=== PATIENT | female | born 1970 | race Hispanic/Latino ===

== ENCOUNTER → 2017-09-06 | Outpatient (CLI) | payer BC ==
[~2017-09-06] MED LIST: GADOBENATE DIMEGLUMINE 20 ML IV ONE
== END | disposition home or self-care (01) ==
LOC: RAH 14:45
PROVIDERS: ATTEND Internal Medicine Medical Oncology
DX: R92.8 Other abnormal and inconclusive findings on diagnostic imaging of breast (principal); Z85.3 Personal history of malignant neoplasm of breast
CPT/HCPCS: A9577; C8908

== ENCOUNTER → 2018-02-25 | Outpatient (CLI) | payer BC | END | disposition home or self-care (01) | LOC: RAH 15:12 | PROVIDERS: ATTEND Internal Medicine Endocrinology, Diabetes & Metabolism | DX: E04.2 Nontoxic multinodular goiter (principal) | CPT/HCPCS: 76536 ==

== ENCOUNTER → 2019-02-21 | Outpatient (CLI) | payer BC | END | disposition home or self-care (01) | LOC: RAH 12:46 | PROVIDERS: ATTEND Internal Medicine Endocrinology, Diabetes & Metabolism | DX: E04.2 Nontoxic multinodular goiter (principal) | CPT/HCPCS: 76536 ==

== ENCOUNTER → 2019-08-29 | Outpatient (CLI) | payer BC | END | disposition home or self-care (01) | LOC: RAH 11:11 | PROVIDERS: ATTEND Internal Medicine Endocrinology, Diabetes & Metabolism | DX: E04.1 Nontoxic single thyroid nodule (principal) | CPT/HCPCS: 76536 ==

== ENCOUNTER → 2020-08-16 | Outpatient (CLI) | payer BC | END | disposition home or self-care (01) | LOC: RAH 14:12 | PROVIDERS: ATTEND Internal Medicine Endocrinology, Diabetes & Metabolism | DX: E04.2 Nontoxic multinodular goiter (principal) | CPT/HCPCS: 76536 ==

== ENCOUNTER → 2020-12-24 | Outpatient (CLI) | payer BC ==
[~2020-12-24] MED LIST changes: -GADOBENATE DIMEGLUMINE 20 ML IV ONE; +GADOTERATE MEGLUMINE 10 MMOL/20 ML VIAL IV ONE
== END | disposition home or self-care (01) ==
LOC: RAH 13:52
PROVIDERS: ATTEND Internal Medicine Hematology & Oncology
DX: R92.2 Inconclusive mammogram (principal); C50.511 Malignant neoplasm of lower-outer quadrant of right female breast; Z85.3 Personal history of malignant neoplasm of breast
CPT/HCPCS: 77049; A9575

== ENCOUNTER → 2023-04-06 | Outpatient (CLI) | payer BC | END | disposition home or self-care (01) | LOC: RAH 14:48 | PROVIDERS: ATTEND Internal Medicine Endocrinology, Diabetes & Metabolism | DX: E04.2 Nontoxic multinodular goiter (principal) | CPT/HCPCS: 76536 ==